=== PATIENT | female | born 1965 | race Caucasian/White ===

== ENCOUNTER 2024-06-13 09:51 | Observation (INO) ==
[2024-06-13] MEDS ORDERED: IOPAMIDOL 100 ML BOTTLE IV ONE (09:52)
[2024-06-13 10:36] LABS: Basophils # (Auto) 0.02 K/mcL (0.00-0.30); Basophils % (Auto) 0.4 % (0.0-2.0); Eosinophils # (Auto) 0.07 K/mcL (0.00-0.70); Eosinophils % (Auto) 1.5 % (0.0-7.0); Hematocrit 39.3 % (34.1-44.9); Hemoglobin 12.9 g/dL (11.2-15.7); Lymphocytes # (Auto) 1.73 K/mcL (1.50-4.80); Lymphocytes % (Auto) 36.3 % (15.5-49.0); Mean Cell Volume 102.1 fL (80.0-100.0); Mean Corpuscular HGB Conc 32.8 g/dL (31.0-36.0); Mean Platelet Volume 10.4 fL (8.8-12.5); Monocytes # (Auto) 0.32 K/mcL (0.10-0.90); Monocytes % (Auto) 6.7 % (1.0-12.0); Neutrophils % (Auto) 54.9 % (38.0-78.0); Platelet Count 241 K/mcL (140-440); RBC 3.85 M/mcL (3.59-5.38); Red Cell Distribution Width 11.8 % (11.5-14.5); WBC 4.8 K/mcL (4.5-11.0)
[2024-06-13 11:09] LABS: ALT/SGPT 41 U/L (<40); AST/SGOT 49 U/L (<32); Albumin 4.8 gm/dL (3.2-5.2); Alkaline Phosphatase 73 U/L (39-117); Bilirubin,Direct < 0.2 mg/dL (0-0.3); Bilirubin,Total 0.3 mg/dL (0.1-1.0); Blood Urea Nitrogen 8 mg/dL (6-20); Calcium 9.4 mg/dL (8.6-10.4); Carbon Dioxide 26 mmol/L (22-30); Chloride 103 mmol/L (96-108); Globulin 2.4 gm/dL (2.2-3.7); Glomerular Filtration Rate 94; Glucose 110 mg/dL (70-105); Potassium 4.3 mmol/L (3.3-5.1); Sodium 141 mmol/L (133-145)
[2024-06-13] MEDS: ASPIRIN 81 MG TAB.CHEW CHEWED ONE ×2 (11:51→12:08)
[2024-06-13] MEDS ORDERED: hydrALAZINE 20 MG/ML VIAL IV PRN (13:14)
[2024-06-13] MEDS ORDERED: ACETAMINOPHEN 325 MG TABLET PO PRN (13:14)
[2024-06-13] MEDS ORDERED: DEXTROSE 50% 50 ML VIAL IV PRN (13:14)
[2024-06-13] MEDS ORDERED: DEXTROSE 31 GM ORAL.SUSP PO PRN (13:14)
[2024-06-13] MEDS ORDERED: traZODone HCL 50 MG TABLET PO PRN (13:14)
[2024-06-13] MEDS ORDERED: ONDANSETRON 4 MG/2 ML VIAL IV PRN (13:14)
[2024-06-13] MEDS ORDERED: IPRATROPIUM/ALBUTEROL 3 ML AMPUL.NEB NEB PRN (13:14)
[2024-06-13] MEDS ORDERED: IPRATROPIUM 2.5 ML AMPUL.NEB INH PRN (14:09)
[2024-06-13] MEDS ORDERED: NALOXONE HCL 4 MG NASAL (PP) NS SCH (14:15)
[2024-06-13 14:23] LABS: HDL Cholesterol 84 mg/dL (>40); LDL Cholesterol,Calculated 35 mg/dL (<100); Non-HDL Cholesterol 47 mg/dL (<130); Triglycerides 65 mg/dL (<150)
[2024-06-13] MEDS ORDERED: SUMAtriptan SUCCINATE 50 MG TABLET PO PRN (14:45)
[2024-06-13 14:47] LABS: Estimated Average Glucose(eAG) 137 mg/dL; Hemoglobin A1C 6.4 % Hgb (4.0-6.0)
[2024-06-13] MEDS: LORazepam 1 MG TABLET PO PRN (14:57)
[2024-06-13] MEDS: BACLOFEN 10 MG TABLET PO SCH (16:04)
[2024-06-13] MEDS: HYDROCODONE/APAP 7.5/325MG TABLET PO PRN (16:04)
[2024-06-13] MEDS: 0.9 % SODIUM CHLORIDE 10 ML SYRINGE IV SCH (16:05)
[2024-06-13] MEDS: GABAPENTIN 300 MG CAPSULE PO SCH (16:07)
[2024-06-13] MEDS: INSULIN LISPRO 1 UNIT/0.01 ML UNIT SQ SCH (17:00)
[2024-06-13] MEDS: ATORVASTATIN 40 MG TABLET PO SCH (21:35)
[2024-06-13] MEDS: morphine 30 MG TAB.SR.12H PO SCH (21:36)
[2024-06-13] MEDS: DOCUSATE SODIUM 100 MG CAPSULE PO SCH (21:36)
[2024-06-13] MEDS: SENNOSIDES 1 TABLET PO SCH (21:53)
[2024-06-13] MEDS: ATROPINE SULFATE 1 MG/ML VIAL IV ONE (21:55)
[2024-06-13] MEDS: Cyclosporine [Restasis] 0.05 % dropperette OU SCH (21:57)
[2024-06-14] MEDS: ATROPINE SULFATE 1 MG/ML VIAL IV ONE (02:24)
[2024-06-14] MEDS: ATROPINE SULFATE 1 MG/10 ML SYRINGE IV ONE ×3 (02:24→02:25)
[2024-06-14 06:36] LABS: Appearance,Urine Clear (Clear); Bilirubin,Urine Negative (Negative); Color,Urine Yellow; Culture Indicated,Urine No; Glucose,Urine (UA) Negative (Negative); Ketones,Urine Negative (Negative); Leukocyte Esterase,Urine Small /uL (Negative); Nitrate,Urine Negative (Negative); Protein,Urine Negative (Negative); Urine Blood Negative ery/mcL (Negative); Urine RBC 0 /hpf (0-3); Urine Squamous Epithelial Cell 0 /hpf (0-4); Urine WBC 0 /hpf (0-4); Urobilinogen,Urine Normal
[2024-06-14 06:42] LABS: Basophils # (Auto) 0.03 K/mcL (0.00-0.30); Basophils % (Auto) 0.6 % (0.0-2.0); Eosinophils # (Auto) 0.09 K/mcL (0.00-0.70); Eosinophils % (Auto) 1.9 % (0.0-7.0); Hematocrit 39.6 % (34.1-44.9); Hemoglobin 12.6 g/dL (11.2-15.7); Lymphocytes # (Auto) 1.64 K/mcL (1.50-4.80); Lymphocytes % (Auto) 33.9 % (15.5-49.0); Mean Cell Volume 105.9 fL (80.0-100.0); Mean Corpuscular HGB Conc 31.8 g/dL (31.0-36.0); Mean Platelet Volume 10.5 fL (8.8-12.5); Monocytes % (Auto) 6.2 % (1.0-12.0); Neutrophils % (Auto) 57.2 % (38.0-78.0); Platelet Count 213 K/mcL (140-440); RBC 3.74 M/mcL (3.59-5.38); Red Cell Distribution Width 11.9 % (11.5-14.5); WBC 4.8 K/mcL (4.5-11.0)
[2024-06-14 07:03] LABS: ALT/SGPT 35 U/L (<40); AST/SGOT 34 U/L (<32); Albumin 4.4 gm/dL (3.2-5.2); Alkaline Phosphatase 65 U/L (39-117); Bilirubin,Total 0.5 mg/dL (0.1-1.0); Blood Urea Nitrogen 11 mg/dL (6-20); Calcium 9.5 mg/dL (8.6-10.4); Carbon Dioxide 28 mmol/L (22-30); Chloride 102 mmol/L (96-108); Globulin 2.2 gm/dL (2.2-3.7); Glomerular Filtration Rate 94; Glucose 93 mg/dL (70-105); Potassium 4.4 mmol/L (3.3-5.1); Sodium 140 mmol/L (133-145)
[2024-06-14] MEDS ORDERED: [UNRECOGNIZED DRUG - OTHER] INH SCH (07:30)
[2024-06-14] MEDS: CALCIUM W/VIT D3 500 MG TABLET PO SCH (08:36)
[2024-06-14] MEDS: FEXOFENADINE 180 MG TABLET PO SCH (08:37)
[2024-06-14] MEDS: VITAMIN D3 25 MCG TABLET PO SCH (08:37)
[2024-06-14] MEDS: MULTIVIT,THER IRON,CA,FA & MIN 1 TABLET PO SCH (08:37)
[2024-06-14] MEDS: ASPIRIN 81 MG TAB.CHEW PO SCH (08:37)
[2024-06-14] MEDS: buPROPion 150 MG TAB.XL.24H PO SCH (08:38)
[2024-06-14] MEDS: CLOPIDOGREL 75 MG TABLET PO SCH (08:38)
[2024-06-14] MEDS: FOLIC ACID 1 MG TABLET PO SCH (08:38)
[2024-06-14] MEDS: SERTRALINE 100 MG TABLET PO SCH (08:41)
[2024-06-14] MEDS ORDERED: ACETYLCYSTEINE 500 MG PO SCH (09:00)
[2024-06-14] MEDS ORDERED: QUERCETIN 500 MG PO SCH (09:00)
[2024-06-14] MEDS ORDERED: BIOTIN 5 MG PO SCH (09:00)
[2024-06-14] MEDS ORDERED: CRANBERRY FRUIT PO SCH (09:00)
[2024-06-14] MEDS ORDERED: ZINC 15 MG PO SCH (09:00)
[2024-06-14] MEDS: Fluticasone-Umeclidin-Vilanter [Trelegy Ellipta] Inhaler INH SCH (10:12)
[2024-06-14] MEDS: METHYLNALTREXONE 150 MG PO SCH (10:12)
[2024-06-14] MEDS: ALBUTEROL SULFATE 60 PUFF INHALER INH PRN (10:41)
[2024-06-14 12:09] VITALS: TEMP 97.6; O2SAT 99
[2024-06-14] MEDS: HYDROCODONE/APAP 7.5/325MG TABLET PO PRN (12:55)
== END 2024-06-14 14:17 | disposition home or self-care (01) ==
LOC: ICU 09:51 → ED 09:51 → ICU 13:24
PROVIDERS: ADMIT Internal Medicine; ATTEND Internal Medicine

== ENCOUNTER 2025-10-28 08:58 | Inpatient (IN) ==
[2025-10-28] MEDS ORDERED: IOPAMIDOL 100 ML BOTTLE IV ONE (08:59)
[2025-10-28] MEDS: 0.9 % SODIUM CHLORIDE 1,000 ML IV ONE (09:26)
[2025-10-28] MEDS: IPRATROPIUM/ALBUTEROL 3 ML AMPUL.NEB NEB ONE (09:39)
[2025-10-28 09:46] LABS: VBG HCO3 21.1 mmol/L (24.0-28.0); VBG PCO2 30.6 mmHg (41.0-51.0); VBG PH 7.46 U (7.32-7.42); VBG PO2 40.2 mmHg (25.0-40.0)
[2025-10-28 10:00] LABS: Basophils # (Auto) 0.01 K/mcL (0.00-0.30); Basophils % (Auto) 0 % (0.0-2.0); Eosinophils # (Auto) 0 K/mcL (0.00-0.70); Eosinophils % (Auto) 0 % (0.0-7.0); Hematocrit 37.5 % (34.1-44.9); Hemoglobin 12.7 g/dL (11.2-15.7); Lymphocytes # (Auto) 1.58 K/mcL (1.50-4.80); Lymphocytes % (Auto) 7.0 % (15.5-49.0); Mean Corpuscular HGB Conc 33.9 g/dL (31.0-36.0); Monocytes # (Auto) 0.57 K/mcL (0.10-0.90); Monocytes % (Auto) 2.5 % (1.0-12.0); Neutrophils % (Auto) 83.9 % (38.0-78.0); Platelet Count 413 K/mcL (140-440); RBC 3.91 M/mcL (3.59-5.38)
[2025-10-28 10:08] LABS: ALT/SGPT 120 U/L (<40); AST/SGOT 104 U/L (<32); Albumin 3.2 gm/dL (3.2-5.2); Albumin/Globulin Ratio 1.1 (1.0-2.3); Alkaline Phosphatase 87 U/L (39-117); Anion Gap 20.0 (8.0-16.0); Bilirubin,Total 0.5 mg/dL (0.1-1.0); Blood Urea Nitrogen 21 mg/dL (8-23); Calcium 9.4 mg/dL (8.6-10.4); Carbon Dioxide 21 mmol/L (22-30); Chloride 98 mmol/L (96-108); Globulin 3.0 gm/dL (2.2-3.7); Glucose 156 mg/dL (70-105); Potassium 3.0 mmol/L (3.3-5.1); Sodium 139 mmol/L (133-145)
[2025-10-28 10:14] LABS: WBC 22.6 K/mcL (4.5-11.0)
[2025-10-28] MEDS: LEVOFLOXACIN 750 MG/150 ML BAG IV ONE (10:36)
[2025-10-28 12:55] LABS: Bilirubin,Urine Negative (Negative); Color,Urine LT. YELLOW; Glucose,Urine (UA) NEGATIVE (Negative); Ketones,Urine >=80 mg/dL (Negative); Leukocyte Esterase,Urine NEGATIVE /uL (Negative); Mucus,Urine Many /hpf; PH,Urine 6.5 (5.0-9.0); Protein,Urine TRACE mg/dL (Negative); Specific Gravity,Urine 1.015 (1.000-1.035); Urobilinogen,Urine 0.2 mg/dL
[2025-10-28] MEDS ORDERED: IPRATROPIUM/ALBUTEROL 3 ML AMPUL.NEB NEB PRN (12:55)
[2025-10-28] MEDS: POTASSIUM CHLORIDE 20 MEQ TABLET PO ONE ×2 (13:07→19:22)
[2025-10-28] MEDS: MAGNESIUM SULFATE 2 GM/50 ML BAG IV ONE (13:07)
[2025-10-28] MEDS: IPRATROPIUM/ALBUTEROL 3 ML AMPUL.NEB NEB SCH (14:08)
[2025-10-28] MEDS ORDERED: ONDANSETRON 4 MG/2 ML VIAL IV PRN (15:29)
[2025-10-28] MEDS ORDERED: DEXTROSE 50% 50 ML VIAL IV PRN (15:29)
[2025-10-28] MEDS ORDERED: DEXTROSE 31 GM ORAL.SUSP PO PRN (15:29)
[2025-10-28] MEDS ORDERED: ACETAMINOPHEN 325 MG TABLET PO PRN (15:29)
[2025-10-28] MEDS: LACTATED RINGERS 1,000 ML IV SCH (16:26)
[2025-10-28] MEDS: INSULIN LISPRO 1 UNIT/0.01 ML UNIT SQ SCH (16:49)
[2025-10-28 17:06] LABS: ALT/SGPT 92 U/L (<40); AST/SGOT 62 U/L (<32); Albumin 2.9 gm/dL (3.2-5.2); Albumin/Globulin Ratio 0.9 (1.0-2.3); Alkaline Phosphatase 74 U/L (39-117); Anion Gap 14.0 (8.0-16.0); Bilirubin,Direct < 0.2 mg/dL (0-0.3); Bilirubin,Total 0.3 mg/dL (0.1-1.0); Blood Urea Nitrogen 18 mg/dL (8-23); Calcium 9.0 mg/dL (8.6-10.4); Carbon Dioxide 22 mmol/L (22-30); Chloride 102 mmol/L (96-108); Globulin 3.3 gm/dL (2.2-3.7); Glucose 215 mg/dL (70-105); Phosphorous 2.9 mg/dL (2.5-4.5); Potassium 3.0 mmol/L (3.3-5.1); Sodium 138 mmol/L (133-145); Triglycerides 104 mg/dL (<150); Uric Acid 5.5 mg/dL (2.5-8.0)
[2025-10-28] MEDS: FLUTICASONE PROPIONATE SPRAY.NAS NS SCH (19:27)
[2025-10-28] MEDS: morphine 30 MG TAB.SR.12H PO SCH (20:33)
[2025-10-28] MEDS: MELATONIN 3 MG TABLET PO PRN (20:33)
[2025-10-28] MEDS: GABAPENTIN 300 MG CAPSULE PO SCH (20:33)
[2025-10-28] MEDS: BACLOFEN 10 MG TABLET PO SCH (20:34)
[2025-10-28] MEDS: HEPARIN 5,000 UNIT/ML VIAL SQ SCH (20:34)
[2025-10-28] MEDS: 0.9 % SODIUM CHLORIDE 10 ML SYRINGE IV SCH (20:35)
[2025-10-28] MEDS ORDERED: BACLOFEN 10 MG TABLET PO SCH (21:00)
[2025-10-29 06:57] LABS: ALT/SGPT 73 U/L (<40); AST/SGOT 44 U/L (<32); Albumin 2.7 gm/dL (3.2-5.2); Albumin/Globulin Ratio 0.9 (1.0-2.3); Alkaline Phosphatase 62 U/L (39-117); Anion Gap 11.0 (8.0-16.0); Bilirubin,Direct < 0.2 mg/dL (0-0.3); Bilirubin,Total 0.3 mg/dL (0.1-1.0); Blood Urea Nitrogen 18 mg/dL (8-23); Calcium 9.1 mg/dL (8.6-10.4); Carbon Dioxide 23 mmol/L (22-30); Chloride 108 mmol/L (96-108); Globulin 2.9 gm/dL (2.2-3.7); Glucose 100 mg/dL (70-105); Phosphorous 2.8 mg/dL (2.5-4.5); Potassium 3.4 mmol/L (3.3-5.1); Sodium 142 mmol/L (133-145); Triglycerides 91 mg/dL (<150); Uric Acid 5.1 mg/dL (2.5-8.0)
[2025-10-29 07:28] LABS: Basophils # (Auto) 0.02 K/mcL (0.00-0.30); Basophils % (Auto) 0.1 % (0.0-2.0); Eosinophils # (Auto) 0.04 K/mcL (0.00-0.70); Eosinophils % (Auto) 0.3 % (0.0-7.0); Hematocrit 30.1 % (34.1-44.9); Hemoglobin 10.2 g/dL (11.2-15.7); Lymphocytes # (Auto) 2.01 K/mcL (1.50-4.80); Lymphocytes % (Auto) 14.8 % (15.5-49.0); Mean Corpuscular HGB Conc 33.9 g/dL (31.0-36.0); Monocytes # (Auto) 0.46 K/mcL (0.10-0.90); Monocytes % (Auto) 3.4 % (1.0-12.0); Neutrophils % (Auto) 69.4 % (38.0-78.0); Platelet Count 339 K/mcL (140-440); RBC 3.09 M/mcL (3.59-5.38); WBC 13.6 K/mcL (4.5-11.0)
[2025-10-29] MEDS ORDERED: buPROPion 150 MG TAB.XL.24H PO SCH (09:00)
[2025-10-29] MEDS: ATORVASTATIN 40 MG TABLET PO SCH (10:06)
[2025-10-29] MEDS: SERTRALINE 50 MG TABLET PO SCH (10:07)
[2025-10-29] MEDS: CLOPIDOGREL 75 MG TABLET PO SCH (10:07)
[2025-10-29] MEDS: FOLIC ACID 1 MG TABLET PO SCH (10:07)
[2025-10-29] MEDS: buPROPion 150 MG TAB.XL.24H PO SCH (10:07)
[2025-10-29] MEDS: CALCIUM W/VIT D3 500 MG TABLET PO SCH (10:07)
[2025-10-29] MEDS: LEVOFLOXACIN 750 MG/150 ML BAG IV SCH (10:08)
[2025-10-29] MEDS: METHYLNALTREXONE 150 MG PO SCH (10:09)
[2025-10-29] MEDS: IPRATROPIUM/ALBUTEROL 3 ML AMPUL.NEB NEB SCH (17:10)
[2025-10-30 07:03] LABS: Basophils # (Auto) 0.01 K/mcL (0.00-0.30); Basophils % (Auto) 0.1 % (0.0-2.0); Eosinophils # (Auto) 0 K/mcL (0.00-0.70); Eosinophils % (Auto) 0 % (0.0-7.0); Hematocrit 31.7 % (34.1-44.9); Hemoglobin 10.5 g/dL (11.2-15.7); Lymphocytes # (Auto) 1.43 K/mcL (1.50-4.80); Lymphocytes % (Auto) 13.6 % (15.5-49.0); Mean Corpuscular HGB Conc 33.1 g/dL (31.0-36.0); Monocytes # (Auto) 0.35 K/mcL (0.10-0.90); Monocytes % (Auto) 3.3 % (1.0-12.0); Neutrophils % (Auto) 73.4 % (38.0-78.0); Platelet Count 313 K/mcL (140-440); RBC 3.17 M/mcL (3.59-5.38); WBC 10.5 K/mcL (4.5-11.0)
[2025-10-30 07:12] LABS: ALT/SGPT 60 U/L (<40); AST/SGOT 29 U/L (<32); Albumin 2.8 gm/dL (3.2-5.2); Albumin/Globulin Ratio 0.9 (1.0-2.3); Alkaline Phosphatase 65 U/L (39-117); Anion Gap 9.0 (8.0-16.0); Bilirubin,Direct < 0.2 mg/dL (0-0.3); Bilirubin,Total 0.2 mg/dL (0.1-1.0); Blood Urea Nitrogen 15 mg/dL (8-23); Calcium 9.0 mg/dL (8.6-10.4); Carbon Dioxide 25 mmol/L (22-30); Chloride 106 mmol/L (96-108); Globulin 3.0 gm/dL (2.2-3.7); Glucose 160 mg/dL (70-105); Phosphorous 3.2 mg/dL (2.5-4.5); Potassium 4.7 mmol/L (3.3-5.1); Sodium 140 mmol/L (133-145); Triglycerides 88 mg/dL (<150); Uric Acid 3.8 mg/dL (2.5-8.0)
[2025-10-30 07:12] LABS: C-Reactive Protein 6.50 mg/dL (0.03-0.80)
[2025-10-30] MEDS ORDERED: BENZONATATE 100 MG CAPSULE PO PRN (15:25)
[2025-10-30] MEDS ORDERED: IPRATROPIUM/ALBUTEROL 3 ML AMPUL.NEB NEB SCH (18:00)
[2025-10-31] MEDS: BENZOCAINE/MENTHOL 1 LOZENGE PO PRN (11:11)
[2025-10-31 11:46] VITALS: TEMP 97.1
[2025-10-31 12:17] VITALS: O2SAT 91
== END 2025-10-31 13:34 | DRG 871 ==
LOC: ED 08:58 → MEDSUR 15:20
PROVIDERS: ADMIT Student in an Organized Health Care Education/Training Program; ATTEND Internal Medicine